=== PATIENT | female | born 1940 | race Caucasian/White ===

== ENCOUNTER 2017-11-27 07:55 | Day surgery (SDC) | payer MEDICARE ==
[2017-11-26 11:56] VITALS: BMI 27.3
[~2017-11-27 07:55] MED LIST: LACTATED RINGERS 1,000 ML IV SCH
[2017-11-27 08:21] VITALS: TEMP 96.3
[2017-11-27] MEDS ORDERED: LIDOCAINE 1% 20 ML VIAL (10MG/ML) FOR IV START INTRADERMA ONE (08:22)
[2017-11-27] MEDS ORDERED: PROPOFOL 10 MG/ML 20 ML VIAL IV ONE (09:05)
--- NOTE | 2017-11-27 09:27 | P.PCN ---
Date of Procedure: 11/27/17 Procedure(s) Performed: BRIEF HISTORY: Patient is a 77-year-old pleasant white female, scheduled for an elective colonoscopy as a part of screening for colorectal neoplasia. Her mother was diagnosed with colon cancer at age 50. PROCEDURE PERFORMED: Colonoscopy. PREOPERATIVE DIAGNOSIS: Screening for colon cancer/family history of colon cancer. IV sedation per Anesthesia. PROCEDURE: After informed consent was obtained, the patient, was brought into the endoscopy unit. IV sedation was administered by Anesthesia under continuous monitoring. Digital rectal examination was normal. Initially the Olympus CF- 160 flexible video colonoscope was then inserted in the rectum, gradually advanced into the cecum without any difficulty. Careful examination was performed as the scope was gradually being withdrawn. Ileocecal valve and the appendiceal orifice were visualized and appeared normal. Prep was excellent. Mucosa of the cecum, ascending colon, transverse colon, descending colon, sigmoid colon, and rectum appeared normal. Scattered sigmoid diverticulosis seen. Retroflexion was performed in the rectum and no lesions were seen. The patient tolerated the procedure well. IMPRESSION: Normal-appearing colon from rectum to cecum with no evidence of colon neoplasia. Scattered sigmoid diverticulosis RECOMMENDATIONS: Findings of this examination were discussed with the patient as well as a family. She was advised to have a repeat screening colonoscopy in 5 years because of the family history of colon cancer..
[2017-11-27 09:45] VITALS: BP 160/80; PULSE 66; RESP 20
== END 2017-11-27 10:10 | disposition home health service (06) ==
LOC: ORWHC2ENDO 07:55
PROVIDERS: ATTEND Internal Medicine Gastroenterology
DX: Z12.11 Encounter for screening for malignant neoplasm of colon (principal); K57.30 Diverticulosis of large intestine without perforation or abscess without bleeding; F17.200 Nicotine dependence, unspecified, uncomplicated; M19.90 Unspecified osteoarthritis, unspecified site; K21.9 Gastro-esophageal reflux disease without esophagitis; I10 Essential (primary) hypertension; E78.5 Hyperlipidemia, unspecified; Z79.1 Long term (current) use of non-steroidal anti-inflammatories (NSAID); Z79.899 Other long term (current) drug therapy; Z80.0 Family history of malignant neoplasm of digestive organs
CPT/HCPCS: J2704; G0105

== ENCOUNTER 2018-04-12 09:04 | Emergency (ER) | payer MEDICARE ==
[2018-04-12] MEDS ORDERED: SODIUM CHLORIDE 0.9% 1,000 ML IV STA (09:25)
[2018-04-12] MEDS ORDERED: ONDANSETRON 4 MG/2 ML VIAL IVP STA (09:25)
[2018-04-12] MEDS ORDERED: MORPHINE SULFATE 4 MG/ML SYRINGE IVP ONE (09:42)
--- NOTE | 2018-04-12 09:48 | ED ---
General Adult HPI - General Chief complaint: Nausea/Vomiting/Diarrhea Stated complaint: diarrhea, vomiting Time Seen by Provider: 04/12/18 09:25 Source: patient, RN notes reviewed Mode of arrival: ambulatory Limitations: no limitations - History of Present Illness Initial comments: 78-year-old female presents emergency Department with chief complaint of left- sided abdominal pain, nausea vomiting diarrhea. Patient states symptoms started last night. Patient states she flew home from for yesterday states that she felt constipated prior states that she did not want take a laxative prior to getting on the plane. Patient states that she got home she started pushing states that she had a large amount of stool output along with vomiting for 2 hours. Patient states it resolved states that she had a bloody bowel movement this morning. Patient had a colonoscopy approximately one month ago which was benign. - Related Data Home Medications Medication Instructions Recorded Confirmed ALPRAZolam [Xanax] 0.25 mg PO BID 07/09/13 04/12/18 Docusate Sodium [Stool Softener] 100 mg PO HS 07/09/13 04/12/18 FLUoxetine HCL 40 mg PO DAILY 07/09/13 04/12/18 Lisinopril [Zestril] 20 mg PO HS 07/09/13 04/12/18 Lisinopril-Hctz 20-25 mg 1 tab PO DAILY 07/09/13 04/12/18 [Zestoretic 20-25] Fluticasone Propionate [Flonase] 1 spray EA NOSTRIL DAILY 07/10/13 04/12/18 Celecoxib [CeleBREX] 200 mg PO DAILY 11/26/17 04/12/18 Multivitamins, Thera [Multivitamin 1 tab PO DAILY 11/26/17 04/12/18 (formulary)] Naproxen Sodium [Aleve] 220 mg PO DAILY PRN 11/26/17 04/12/18 Rosuvastatin Calcium [Crestor] 10 mg PO DAILY 11/26/17 04/12/18 buPROPion HCL [Wellbutrin XL] 300 mg PO DAILY 11/26/17 04/12/18 Polyethylene Glycol 3350 [Miralax] 17 gm PO DAILY 04/12/18 04/12/18 Allergies Allergy/AdvReac Type Severity Reaction Status Date / Time SEASONAL ALLERGIES AdvReac Cough Uncoded 10/03/18 08:16 Review of Systems ROS Statement: Those systems with pertinent positive or pertinent negative responses have been documented in the HPI. ROS Other: All systems not noted in ROS Statement are negative. Past Medical History Past Medical History: Eye Disorder, GERD/Reflux, Hyperlipidemia, Hypertension, Osteoarthritis (OA), Skin Disorder Additional Past Medical History / Comment(s): astigmatism, hx migraines, vagus nerve problems- "if constipated I pass out", eczema, History of Any Multi-Drug Resistant Organisms: None Reported Past Surgical History: Breast Surgery, Heart Catheterization, Joint Replacement Additional Past Surgical History / Comment(s): claudine foot mortons neuroma, claudine cataracts, left knee replacement x 3, rt knee replacement x 2, left breast biopsy, Past Anesthesia/Blood Transfusion Reactions: No Reported Reaction Past Psychological History: Anxiety, Depression Smoking Status: Current some day smoker Past Alcohol Use History: Rare Past Drug Use History: None Reported - Past Family History Mother Family Medical History: Cancer Additional Family Medical History / Comment(s): colon General Exam Limitations: no limitations General appearance: alert, in no apparent distress Head exam: Present: atraumatic, normocephalic, normal inspection Neck exam: Present: normal inspection. Absent: tenderness, meningismus, lymphadenopathy Respiratory exam: Present: normal lung sounds bilaterally. Absent: respiratory distress, wheezes, rales, rhonchi, stridor Cardiovascular Exam: Present: regular rate, normal rhythm, normal heart sounds. Absent: systolic murmur, diastolic murmur, rubs, gallop, clicks GI/Abdominal exam: Present: soft, tenderness (Mild left-sided), normal bowel sounds. Absent: distended, guarding, rebound, rigid Back exam: Absent: CVA tenderness (R), CVA tenderness (L) Skin exam: Present: warm, dry, intact, normal color. Absent: rash Course Vital Signs 04/12/18 04/12/18 09:08 10:15 Temperature 98.5 F Pulse Rate 84 76 Respiratory 16 18 Rate Blood Pressure 184/98 171/93 O2 Sat by Pulse 97 96 Oximetry Medical Decision Making - Medical Decision Making 78 show female presented for abdominal pain, diarrhea. Patient did have 1 bloody episode which is minimal. Patient has CT evidence of colitis. She is stable for discharge at this time she had a normal last be one month ago. This most likely the viral infection. Patient will be discharged return parameters were discussed. - Lab Data Result diagrams: 04/12/18 10:05 04/12/18 10:05 Lab Results 04/12/18 04/12/18 04/12/18 Range/Units 10:05 10:05 11:00 WBC 11.3 H (3.8-10.6) k/uL RBC 4.64 (3.80-5.40) m/uL Hgb 14.2 (11.4-16.0) gm/dL Hct 42.8 (34.0-46.0) % MCV 92.2 (80.0-100.0) fL MCH 30.7 (25.0-35.0) pg MCHC 33.3 (31.0-37.0) g/dL RDW 13.2 (11.5-15.5) % Plt Count 249 (150-450) k/uL Neutrophils % 75 % Lymphocytes % 17 % Monocytes % 4 % Eosinophils % 2 % Basophils % 0 % Neutrophils # 8.5 H (1.3-7.7) k/uL Lymphocytes # 1.9 (1.0-4.8) k/uL Monocytes # 0.5 (0-1.0) k/uL Eosinophils # 0.2 (0-0.7) k/uL Basophils # 0.0 (0-0.2) k/uL Sodium 142 (137-145) mmol/L Potassium 4.0 (3.5-5.1) mmol/L Chloride 110 H (98-107) mmol/L Carbon Dioxide 25 (22-30) mmol/L Anion Gap 7 mmol/L BUN 20 H (7-17) mg/dL Creatinine 0.88 (0.52-1.04) mg/dL Est GFR (CKD-EPI)AfAm 74 (>60 ml/min/1.73 sqM) Est GFR (CKD-EPI)NonAf 64 (>60 ml/min/1.73 sqM) Glucose 94 (74-99) mg/dL Calcium 9.6 (8.4-10.2) mg/dL Total Bilirubin 0.9 (0.2-1.3) mg/dL AST 25 (14-36) U/L ALT 31 (9-52) U/L Alkaline Phosphatase 90 (38-126) U/L Total Protein 6.5 (6.3-8.2) g/dL Albumin 4.0 (3.5-5.0) g/dL Amylase 42 (30-110) U/L Lipase 94 (23-300) U/L Urine Color Light Yellow Urine Appearance Clear (Clear) Urine pH 6.0 (5.0-8.0) Ur Specific [place] 1.003 (1.001-1.035) Urine Protein Negative (Negative) Urine Glucose (UA) Negative (Negative) Urine Ketones Negative (Negative) Urine Blood Negative (Negative) Urine Nitrite Negative (Negative) Urine Bilirubin Negative (Negative) Urine Urobilinogen <2.0 (<2.0) mg/dL Ur Leukocyte Esterase Small H (Negative) Urine RBC <1 (0-5) /hpf Urine WBC 2 (0-5) /hpf Ur Squamous Epith Cells 1 (0-4) /hpf Urine Mucus Rare H (None) /hpf Disposition Clinical Impression: Colitis Disposition: HOME SELF-CARE Condition: Stable Instructions (If sedation given, give patient instructions): Colitis (ED) Additional Instructions: Please return to the Emergency Department if symptoms worsen or any other concerns. Is patient prescribed a controlled substance at d/c from ED?: No Referrals: Dimas Garcia MD [Primary Care Provider] - 1-2 days Time of Disposition: 12:04
[2018-04-12 10:40] LABS: Basophils % (A) 0 %; Eosinophils # (A) 0.2 k/uL (0-0.7); Eosinophils % (A) 2 %; HCT 42.8 % (34.0-46.0); HGB 14.2 gm/dL (11.4-16.0); Lymphocytes # (A) 1.9 k/uL (1.0-4.8); Lymphocytes % (A) 17 %; MCH 30.7 pg (25.0-35.0); MCHC 33.3 g/dL (31.0-37.0); MCV 92.2 fL (80.0-100.0); Mean Platelet Volume 7.1; Monocytes # (A) 0.5 k/uL (0-1.0); Monocytes % (A) 4 %; Neutrophils # (A) 8.5 k/uL (1.3-7.7); Neutrophils % (A) 75 %; Platelet Count 249 k/uL (150-450); RBC 4.64 m/uL (3.80-5.40); RDW 13.2 % (11.5-15.5); WBC 11.3 k/uL (3.8-10.6)
[2018-04-12 10:53] LABS: Calcium 9.6 mg/dL (8.4-10.2); Total Bilirubin 0.9 mg/dL (0.2-1.3); Total Protein 6.5 g/dL (6.3-8.2)
--- NOTE | 2018-04-12 11:28 | CT ---
EXAMINATION TYPE: CT abdomen pelvis w con DATE OF EXAM: 04/12/2018 COMPARISON: None HISTORY: Diarrhea, vomiing CT DLP: 672.6 mGycm CONTRAST: CT scan of the abdomen and pelvis is performed without Oral Contrast and with IV Contrast, patient in jected with 100 mL of Isovue 300. FINDINGS: LUNG BASES-: No visible nodule. No infiltrate. LIVER/GB: No calcified gallstones. No space occupying hepatic lesion. Biliary tree is of normal ca liber. PANCREAS: No inflammation. No distinct mass. SPLEEN: No splenic enlargement. No lesion seen. ADRENALS: No nodule. No thickening. KIDNEYS/BLADDER: No hydronephrosis. No nephrolithiasis. Large left-sided renal cysts noted measurin g 10.4 cm in greatest dimension. Smaller renal cortical cyst upper pole left kidney. Urinary bladder grossly unremarkable. BOWEL: Normal appendix. There is moderate wall thickening involving the distal descending colon exten ding into the sigmoid colon compatible with nonspecific colitis. Colonic diverticulosis. GENITAL ORGANS: No gross abnormality. LYMPH NODES: No greater than 1cm abdominal or pelvic lymph nodes are appreciated. AORTA: No significant abnormality. OSSEOUS STRUCTURES: No significant abnormality is seen. OTHER: No significant additional abnormality is seen. IMPRESSION: 1. There is moderate wall thickening involving the distal descending colon extending into the sigmoid colon compatible with nonspecific colitis.
[2018-04-12 11:33] LABS: Appearance,Urine Clear (Clear); Bilirubin,Urine Negative (Negative); Blood,Urine Negative (Negative); Color,Urine Light Yellow; Glucose,Urine (UA) Negative (Negative); Ketones,Urine Negative (Negative); Leukocyte Esterase,Urine Small (Negative); Mucus,Urine Rare /hpf; Nitrite,Urine Negative (Negative); Protein,Urine Negative (Negative); RBC,Urine <1 /hpf (0-5); Specific Gravity,Urine 1.003 (1.001-1.035); Squamous Epithelial Cell,Urine 1 /hpf (0-4); Urobilinogen,Urine <2.0 mg/dL (<2.0); WBC,Urine 2 /hpf (0-5)
[2018-04-12] MEDS ORDERED: ACET/COD 300 MG/30 MG STARTER PACK 6 TAB BTL PO STA (12:35)
[2018-04-12 12:41] VITALS: BP 164/94; PULSE 68; RESP 16; TEMP 97.9
== END 2018-04-12 12:45 | disposition home or self-care (01) ==
LOC: EC 09:04
DX: K52.9 Noninfective gastroenteritis and colitis, unspecified (principal); E78.5 Hyperlipidemia, unspecified; I10 Essential (primary) hypertension; M19.90 Unspecified osteoarthritis, unspecified site; G43.909 Migraine, unspecified, not intractable, without status migrainosus; F41.9 Anxiety disorder, unspecified; F32.9 Major depressive disorder, single episode, unspecified; F17.200 Nicotine dependence, unspecified, uncomplicated; Z95.818 Presence of other cardiac implants and grafts; Z96.653 Presence of artificial knee joint, bilateral; Z79.51 Long term (current) use of inhaled steroids; Z79.1 Long term (current) use of non-steroidal anti-inflammatories (NSAID); Z79.899 Other long term (current) drug therapy; Z91.048 Other nonmedicinal substance allergy status
CPT/HCPCS: 36415; 80053; 82150; 83690; 85025; 81001; 74177; 99284; 96374; 96375; 96361; J2270; J2405; Q9967

== ENCOUNTER 2018-12-05 18:48 | Emergency (ER) | payer MEDICARE ==
[2018-12-05 19:00] VITALS: RESP 18
--- NOTE | 2018-12-05 20:53 | CT ---
EXAMINATION TYPE: CT brain wo con DATE OF EXAM: 12/05/2018 COMPARISON: None HISTORY: weakness, numbness to hands and feet. no injury. CT DLP: 1064.4 mGycm Automated exposure control for dose reduction was used. FINDINGS: There is mild hypodensity in the periventricular white matter. Ventricles have normal size. There is no mass effect nor midline shift. There is no sign of intracranial hemorrhage. Calvarium is intact. IMPRESSION: CHRONIC SMALL VESSEL ISCHEMIA. NO EVIDENCE OF CORTICAL INFARCT. NO INTRACRANIAL HEMORRHAGE.
--- NOTE | 2018-12-05 20:57 | CT ---
EXAMINATION TYPE: CT lumbar spine wo con DATE OF EXAM: 12/05/2018 8:48 PM COMPARISON: None HISTORY: weakness, numbness to hands and feet. no injury. CT DLP: 998.4 mGycm Automated exposure control for dose reduction was used. Unenhanced CT of the lumbar spine was performed. Bone and soft tissue window settings are submitted as well as coronal and sagittal reconstructions. Lumbar vertebra have mild dextroscoliosis deformity. There is degenerative disc space narrowing throu ghout the lumbar spine with multilevel vacuum disc. There is no compression fracture. Posterior eleme nts are intact. There is no lumbar paraspinal mass. I see no focal bone destruction. There is mild hy pertrophic facet arthropathy. There is L5-S1 spinal stenosis due to facet arthropathy. There is also mild spinal stenosis at L3-4 L4-5 due to facet arthropathy. The sacroiliac joints appear intact. IMPRESSION: Multilevel spondylosis and mild dextroscoliosis. No fracture. Multilevel lumbar spinal stenosis.
[2018-12-05 20:58] LABS: ALT 27 U/L (9-52); AST 33 U/L (14-36); African American GFR (CKD) 68 (>60 ml/min/1.73 sqM); Albumin 4.6 g/dL (3.5-5.0); Alkaline Phosphatase 102 U/L (38-126); Anion Gap 11 mmol/L; Basophils # (A) 0.1 k/uL (0-0.2); Basophils % (A) 1 %; Blood Urea Nitrogen 23 mg/dL (7-17); C Reactive Protein <5.0 mg/L (<10.0); Calcium 10.2 mg/dL (8.4-10.2); Carbon Dioxide 25 mmol/L (22-30); Chloride 105 mmol/L (98-107); Creatine Kinase 135 U/L (30-135); Eosinophils # (A) 0.2 k/uL (0-0.7); Eosinophils % (A) 2 %; Glucose 89 mg/dL (74-99); HCT 41.9 % (34.0-46.0); HGB 14.1 gm/dL (11.4-16.0); Lymphocytes # (A) 3.1 k/uL (1.0-4.8); Lymphocytes % (A) 28 %; MCH 31.4 pg (25.0-35.0); MCHC 33.6 g/dL (31.0-37.0); MCV 93.4 fL (80.0-100.0); Magnesium 2.3 mg/dL (1.6-2.3); Mean Platelet Volume 6.7; Monocytes # (A) 0.6 k/uL (0-1.0); Monocytes % (A) 5 %; Neutrophils % (A) 62 %; Platelet Count 253 k/uL (150-450); Potassium 4.1 mmol/L (3.5-5.1); RBC 4.49 m/uL (3.80-5.40); RDW 12.9 % (11.5-15.5); Sodium 141 mmol/L (137-145); Total Bilirubin 0.6 mg/dL (0.2-1.3); Total Protein 7.5 g/dL (6.3-8.2); WBC 11.2 k/uL (3.8-10.6)
[2018-12-05 21:02] LABS: INR 0.9 (<1.2); Partial Thromboplastin Time 24.3 sec (22.0-30.0); Prothrombin Time 9.7 sec (9.0-12.0)
--- NOTE | 2018-12-05 21:35 | US ---
EXAMINATION TYPE: US venous doppler duplex LE RT DATE OF EXAM: 12/05/2018 9:24 PM COMPARISON: NONE CLINICAL HISTORY: swelling. Numbness in right leg x 2 days. Swelling per order. No hx of DVT. Not on blood thinners. SIDE PERFORMED: Right TECHNIQUE: The lower extremity deep venous system is examined utilizing real time linear array sonog aleyda with graded compression, doppler sonography and color-flow sonography. VESSELS IMAGED: External Iliac Vein (EIV) Common Femoral Vein Deep Femoral Vein Greater Saphenous Vein * Femoral Vein Popliteal Vein Small Saphenous Vein * Proximal Calf Veins (* superficial vessels) Right Leg: No evidence of DVT in veins imaged from prox calf veins to EIV. Patient cannot tolerate c ompression of distal femoral vein. IMPRESSION: No evidence of deep venous thrombosis in the right leg.
--- NOTE | 2018-12-05 21:38 | ED ---
Neuro HPI - General Chief Complaint: Neuro Symptoms/Deficit Stated Complaint: Hand,foot and leg numbness Time Seen by Provider: 12/05/18 19:00 Source: patient Mode of arrival: ambulatory - History of Present Illness Is the patient presenting with stroke symptoms?: No Initial Comments: The patient is a 78-year-old female with past medical history of hypertension and anxiety who presents to the emergency room with reported numbness and tingling in her bilateral hands and feet. Her symptoms started on Saturday. She reports that she began having numbness and tingling in her right toes. This ascended up to her right knee and now is worsened to include her whole leg. She feels as if it is swollen and her "pant leg is too tight". He denies a history of DVTs or PE. No recent trauma. The sensory deficit worsened and she now has tingling from her left knee down to her foot, as well as bilateral hands and upper lip. She denies any weakness in her extremities. Denies cervical or thoracic back pain. She admits to a history of chronic lumbar back pain is not worsened. She denies any saddle anesthesia. No bowel or bladder incontinence. No recent head trauma. She is not on any blood thinners. Denies fevers or chills. No ataxia. Patient reports difficulty ambulating because she feels as if she is walking on a water balloon. No history of similar in the past. She called her primary care physician who referred her to the emergency department. He did recommend neurologic evaluation. He voiced concern for Guillain-Matos and possible transverse myelitis. There are no other alleviating, precipitating or modifying factors - Related Data Home Medications: Home Medications Medication Instructions Recorded Confirmed ALPRAZolam [Xanax] 0.25 mg PO BID 07/09/13 12/05/18 Docusate Sodium [Stool Softener] 100 mg PO HS 07/09/13 12/05/18 FLUoxetine HCL 40 mg PO DAILY 07/09/13 12/05/18 Lisinopril [Zestril] 20 mg PO HS 07/09/13 12/05/18 Lisinopril-Hctz 20-25 mg 1 tab PO DAILY 07/09/13 12/05/18 [Zestoretic 20-25] Fluticasone Propionate [Flonase] 1 spray EA NOSTRIL DAILY 07/10/13 12/05/18 Celecoxib [CeleBREX] 200 mg PO DAILY 11/26/17 12/05/18 Multivitamins, Thera [Multivitamin 1 tab PO DAILY 11/26/17 12/05/18 (formulary)] Rosuvastatin Calcium [Crestor] 10 mg PO DAILY 11/26/17 12/05/18 buPROPion HCL [Wellbutrin XL] 300 mg PO DAILY 11/26/17 12/05/18 Polyethylene Glycol 3350 [Miralax] 17 gm PO DAILY 04/12/18 12/05/18 Allergies/Adverse Reactions: Allergies Allergy/AdvReac Type Severity Reaction Status Date / Time SEASONAL ALLERGIES AdvReac Cough Uncoded 12/05/18 20:09 Review of Systems ROS Statement: Those systems with pertinent positive or pertinent negative responses have been documented in the HPI. ROS Other: All systems not noted in ROS Statement are negative. General Exam General appearance: alert, in no apparent distress Head exam: Present: atraumatic, normocephalic, normal inspection Eye exam: Present: normal appearance, PERRL, EOMI. Absent: scleral icterus, conjunctival injection, periorbital swelling ENT exam: Present: normal exam, mucous membranes moist Neck exam: Present: normal inspection. Absent: tenderness, meningismus, lymphadenopathy Respiratory exam: Present: normal lung sounds bilaterally. Absent: respiratory distress, wheezes, rales, rhonchi, stridor Cardiovascular Exam: Present: regular rate, normal rhythm, normal heart sounds. Absent: systolic murmur, diastolic murmur, rubs, gallop, clicks GI/Abdominal exam: Present: soft, normal bowel sounds. Absent: distended, tenderness, guarding, rebound, rigid Extremities exam: Present: normal inspection, full ROM, normal capillary refill. Absent: tenderness, pedal edema, joint swelling, calf tenderness Back exam: Present: normal inspection Neurological exam: Present: alert, oriented X3, CN II-XII intact, reflexes normal, other (5/5 strength in all extremities. Intact 2 point, soft touch and proprioception in all extremities ) Psychiatric exam: Present: normal affect, normal mood Skin exam: Present: warm, dry, intact, normal color. Absent: rash Stroke MDM - Lab Data Result diagrams: 12/05/18 19:56 12/05/18 19:56 Lab Results 12/05/18 12/05/18 12/05/18 Range/Units 19:56 19:56 19:56 WBC 11.2 H (3.8-10.6) k/uL RBC 4.49 (3.80-5.40) m/uL Hgb 14.1 (11.4-16.0) gm/dL Hct 41.9 (34.0-46.0) % MCV 93.4 (80.0-100.0) fL MCH 31.4 (25.0-35.0) pg MCHC 33.6 (31.0-37.0) g/dL RDW 12.9 (11.5-15.5) % Plt Count 253 (150-450) k/uL Neutrophils % 62 % Lymphocytes % 28 % Monocytes % 5 % Eosinophils % 2 % Basophils % 1 % Neutrophils # 7.0 (1.3-7.7) k/uL Lymphocytes # 3.1 (1.0-4.8) k/uL Monocytes # 0.6 (0-1.0) k/uL Eosinophils # 0.2 (0-0.7) k/uL Basophils # 0.1 (0-0.2) k/uL ESR 8 (0-20) mm/hr PT 9.7 (9.0-12.0) sec INR 0.9 (<1.2) APTT 24.3 (22.0-30.0) sec Sodium 141 (137-145) mmol/L Potassium 4.1 (3.5-5.1) mmol/L Chloride 105 (98-107) mmol/L Carbon Dioxide 25 (22-30) mmol/L Anion Gap 11 mmol/L BUN 23 H (7-17) mg/dL Creatinine 0.95 (0.52-1.04) mg/dL Est GFR (CKD-EPI)AfAm 68 (>60 ml/min/1.73 sqM) Est GFR (CKD-EPI)NonAf 59 (>60 ml/min/1.73 sqM) Glucose 89 (74-99) mg/dL Plasma Lactic Acid Uriel (0.7-2.0) mmol/L Calcium 10.2 (8.4-10.2) mg/dL Magnesium 2.3 (1.6-2.3) mg/dL Total Bilirubin 0.6 (0.2-1.3) mg/dL AST 33 (14-36) U/L ALT 27 (9-52) U/L Alkaline Phosphatase 102 (38-126) U/L Creatine Kinase 135 (30-135) U/L C-Reactive Protein <5.0 (<10.0) mg/L Total Protein 7.5 (6.3-8.2) g/dL Albumin 4.6 (3.5-5.0) g/dL TSH 2.130 (0.465-4.680) mIU/L Urine Color Urine Appearance (Clear) Urine pH (5.0-8.0) Ur Specific [place] (1.001-1.035) Urine Protein (Negative) Urine Glucose (UA) (Negative) Urine Ketones (Negative) Urine Blood (Negative) Urine Nitrite (Negative) Urine Bilirubin (Negative) Urine Urobilinogen (<2.0) mg/dL Ur Leukocyte Esterase (Negative) 12/05/18 12/05/18 Range/Units 20:20 22:08 WBC (3.8-10.6) k/uL RBC (3.80-5.40) m/uL Hgb (11.4-16.0) gm/dL Hct (34.0-46.0) % MCV (80.0-100.0) fL MCH (25.0-35.0) pg MCHC (31.0-37.0) g/dL RDW (11.5-15.5) % Plt Count (150-450) k/uL Neutrophils % % Lymphocytes % % Monocytes % % Eosinophils % % Basophils % % Neutrophils # (1.3-7.7) k/uL Lymphocytes # (1.0-4.8) k/uL Monocytes # (0-1.0) k/uL Eosinophils # (0-0.7) k/uL Basophils # (0-0.2) k/uL ESR (0-20) mm/hr PT (9.0-12.0) sec INR (<1.2) APTT (22.0-30.0) sec Sodium (137-145) mmol/L Potassium (3.5-5.1) mmol/L Chloride (98-107) mmol/L Carbon Dioxide (22-30) mmol/L Anion Gap mmol/L BUN (7-17) mg/dL Creatinine (0.52-1.04) mg/dL Est GFR (CKD-EPI)AfAm (>60 ml/min/1.73 sqM) Est GFR (CKD-EPI)NonAf (>60 ml/min/1.73 sqM) Glucose (74-99) mg/dL Plasma Lactic Acid Uriel 1.2 (0.7-2.0) mmol/L Calcium (8.4-10.2) mg/dL Magnesium (1.6-2.3) mg/dL Total Bilirubin (0.2-1.3) mg/dL AST (14-36) U/L ALT (9-52) U/L Alkaline Phosphatase (38-126) U/L Creatine Kinase (30-135) U/L C-Reactive Protein (<10.0) mg/L Total Protein (6.3-8.2) g/dL Albumin (3.5-5.0) g/dL TSH (0.465-4.680) mIU/L Urine Color Light Yellow Urine Appearance Clear (Clear) Urine pH 7.0 (5.0-8.0) Ur Specific [place] 1.012 (1.001-1.035) Urine Protein Negative (Negative) Urine Glucose (UA) Negative (Negative) Urine Ketones Negative (Negative) Urine Blood Negative (Negative) Urine Nitrite Negative (Negative) Urine Bilirubin Negative (Negative) Urine Urobilinogen <2.0 (<2.0) mg/dL Ur Leukocyte Esterase Negative (Negative) - Medical Decision Making Upon arrival the patient was placed into room 22. She was hooked up to continuous pulse ox and cardiac monitoring. A 12-lead EKG was performed on the patient. Peripheral IV was established. I did conduct laboratory studies. Madi brown was sent for a CT of her brain. I also did a CT the patient's lumbar spine. She is reporting swelling to her right lower extremity therefore I did perform a Doppler ultrasound. Lab studies demonstrate a WBC of 11.2. Coags are normal. CMP and lactic acid is normal. Magnesium is 2.3 and potassium is 4.1. UA is negative. Venous ultrasound of the right lower trauma demonstrates no evidence of DVT from the proximal calf to the external iliac vein. She could not tolerate compression of the distal femoral vein. Lumbar spine CT demonstrated multilevel spondylolysis and mild dextroscoliosis with multilevel lumbar spinal stenosis. CT of the patient's brain demonstrates chronic small vessel ischemia with no evidence of cortical infarct. I discussed the results with the patient. I did recommend lumbar puncture however the patient refused. I did recommend full neurologic evaluation for which the patient did agree to. As neurology is not available at our facility I did recommend transfer. Patient does agree to transfer [facility]. I called and discussed the case with Dr. Lopez who accepted transfer of the patient. Patient was then transferred in stable condition 12/05/18 21:38 EKG demonstrates a sinus rhythm with a PVC. Ventricular rate of 70. ME interval 178. QRS 126. QTC 477. There is a right bundle branch block. No acute ST segment elevations or depressions concerning for ischemic changes Past Medical History Past Medical History: Eye Disorder, GERD/Reflux, Hyperlipidemia, Hypertension, Osteoarthritis (OA), Skin Disorder Additional Past Medical History / Comment(s): astigmatism, hx migraines, vagus nerve problems- "if constipated I pass out", eczema, History of Any Multi-Drug Resistant Organisms: None Reported Past Surgical History: Breast Surgery, Heart Catheterization, Joint Replacement Additional Past Surgical History / Comment(s): claudine foot mortons neuroma, claudine cataracts, left knee replacement x 3, rt knee replacement x 2, left breast biopsy, Past Anesthesia/Blood Transfusion Reactions: No Reported Reaction Past Psychological History: Anxiety, Depression Smoking Status: Current some day smoker Past Alcohol Use History: Rare Past Drug Use History: None Reported - Past Family History Mother Family Medical History: Cancer Additional Family Medical History / Comment(s): colon Course Vital Signs 12/05/18 12/05/18 18:56 23:36 Temperature 97.5 F L 98.2 F Pulse Rate 83 72 Respiratory 18 18 Rate Blood Pressure 106/66 184/104 O2 Sat by Pulse 97 96 Oximetry Disposition Clinical Impression: Neuropathy Disposition: OTHER INSTITUTION NOT DEFINED Condition: Stable Is patient prescribed a controlled substance at d/c from ED?: No Referrals: Dimas Garcia MD [Primary Care Provider] - 1-2 days Time of Disposition: 23:58 - Out of Hospital Transfer - Req. Specs Out of Hospital Transfer - Requested Specifics: Other Emergency Center ([facility])
[2018-12-05 21:51] LABS: Erythrocyte Sedimentation Rate 8 mm/hr (0-20)
[2018-12-05 22:22] LABS: Appearance,Urine Clear (Clear); Bilirubin,Urine Negative (Negative); Blood,Urine Negative (Negative); Color,Urine Light Yellow; Glucose,Urine (UA) Negative (Negative); Ketones,Urine Negative (Negative); Leukocyte Esterase,Urine Negative (Negative); Nitrite,Urine Negative (Negative); Protein,Urine Negative (Negative); Specific Gravity,Urine 1.012 (1.001-1.035); Urobilinogen,Urine <2.0 mg/dL (<2.0)
[2018-12-05 23:37] VITALS: BP 184/104; PULSE 72; TEMP 98.2
[2018-12-06] MEDS ORDERED: LISINOPRIL 20 MG TAB PO STA (00:05)
== END 2018-12-06 00:15 | disposition other institution (70) ==
LOC: EC 18:48
DX: G62.9 Polyneuropathy, unspecified (principal); E78.5 Hyperlipidemia, unspecified; I10 Essential (primary) hypertension; K21.9 Gastro-esophageal reflux disease without esophagitis; M19.90 Unspecified osteoarthritis, unspecified site; F41.9 Anxiety disorder, unspecified; F32.9 Major depressive disorder, single episode, unspecified; F17.200 Nicotine dependence, unspecified, uncomplicated; Z79.899 Other long term (current) drug therapy; Z91.09 Other allergy status, other than to drugs and biological substances; Z96.653 Presence of artificial knee joint, bilateral; M48.061 Spinal stenosis, lumbar region without neurogenic claudication; M43.06 Spondylolysis, lumbar region
CPT/HCPCS: 36415; 70450; 72131; 80053; 81003; 82550; 83605; 83735; 84443; 85025; 85610; 85652; 85730; 86140; 93005; 99285

== ENCOUNTER → 2020-09-06 | Outpatient (CLI) | payer MEDICARE | LOC: CPPFTMAIN 13:19 | PROVIDERS: ATTEND Internal Medicine | DX: R06.02 Shortness of breath (principal); F17.200 Nicotine dependence, unspecified, uncomplicated | CPT/HCPCS: 94060; 94726; 94729 ==

== ENCOUNTER → 2020-11-22 | Outpatient (CLI) | payer MEDICARE ==
--- NOTE | 2020-11-23 09:05 | XR ---
EXAMINATION TYPE: XR chest 2V DATE OF EXAM: 11/22/2020 COMPARISON: Chest x-ray 07/17/2013 HISTORY: R06.02, difficulty breathing TECHNIQUE: Frontal and lateral views of the chest are obtained. FINDINGS: There is no pleural effusion or pneumothorax seen. There is some prominence of interstitiu m. Some patchy density present in the right midlung. Prominent lung volumes with flattening the hemid iaphragms could be indicative of underlying COPD. The aorta is dense and ectatic, tortuous. Bone mine ralization is reduced. The cardiac silhouette size is stable. Overlying loop recorder is noted on th e left lower chest. The osseous structures are intact, there is multilevel vertebral spondylosis. IMPRESSION: Difficult to exclude early pneumonia, there may be interstitial changes within the lungs . Aortic ectasia. There may be some underlying interstitial lung disease.
== END | disposition home or self-care (01) ==
LOC: RADXRMAIN 16:52
PROVIDERS: ATTEND Internal Medicine
DX: J98.4 Other disorders of lung (principal); I77.810 Thoracic aortic ectasia
CPT/HCPCS: 71046

== ENCOUNTER → 2021-02-23 | Outpatient (CLI) | payer MEDICARE ==
--- NOTE | 2021-02-23 12:03 | XR ---
EXAMINATION TYPE: XR shoulder complete RT DATE OF EXAM: 02/23/2021 CLINICAL HISTORY: pain TECHNIQUE: Three views of the right shoulder are obtained. COMPARISON: None FINDINGS: There is no acute fracture/dislocation evident. The acromioclavicular and glenohumeral evgeny int spaces appear within normal limits. The visualized ribs are intact and unremarkable. IMPRESSION: 1. There is no acute fracture or dislocation. ICD 10 NO FRACTURE, INITIAL EVALUATION
== END | disposition home or self-care (01) ==
LOC: RADXRMAIN 11:42
PROVIDERS: ATTEND Internal Medicine
DX: M25.511 Pain in right shoulder (principal)

== ENCOUNTER → 2021-09-18 | Outpatient (CLI) | payer MEDICARE ==
--- NOTE | 2021-09-18 18:47 | US ---
EXAMINATION TYPE: US kidneys/renal and bladder DATE OF EXAM: 09/18/2021 COMPARISON: NONE CLINICAL HISTORY: N28.9 KIDNEY LESION. renal cyst EXAM MEASUREMENTS: Right Kidney: 9.1 x 4.1 x 3.9 cm Left Kidney: 10.1 x 5.8 x 4.5 cm Right Kidney: no evidence of hydronephrosis or nephrolithiasis. Left Kidney: cystic areas noted, largest = 12.4 x 11.1 x 13.0cm . No hydronephrosis or nephrolithia sis Bladder: wnl Bilateral Jets seen: yes IMPRESSION: Multiple hypoechoic lesions involving the kidneys the largest measuring 12.4 x 13 cm most likely in t he basis of renal simple cysts.
== END | disposition home or self-care (01) ==
LOC: RADUSWWP 15:41
PROVIDERS: ATTEND Internal Medicine
DX: N28.9 Disorder of kidney and ureter, unspecified (principal)
CPT/HCPCS: 76770

== ENCOUNTER 2021-09-29 13:29 | Emergency (ER) | payer MEDICARE ==
[2021-09-29 13:41] VITALS: TEMP 98
[2021-09-29] MEDS ORDERED: NITROGLYCERIN OINT 1 INCH/GM PACKET TOPICAL STA (13:54)
[2021-09-29] MEDS ORDERED: ENALAPRILAT 1.25 MG/ML 1 ML VIAL IVP STA (13:55)
--- NOTE | 2021-09-29 13:59 | ED ---
General Adult HPI - General Source: patient, RN notes reviewed, old records reviewed Mode of arrival: EMS Limitations: no limitations <Viral Dubois - Last Filed: 09/29/21 14:50> <Stanislav Ramos - Last Filed: 09/29/21 16:56> - General Chief complaint: Chest Pain Stated complaint: chest pain Time Seen by Provider: 09/29/21 13:57 - History of Present Illness Initial comments: This is a 81-year-old female who presents emergency Department complaining of anterior chest pain. Patient states the pain radiated to her back and was quite excruciating for the first 15 or so minutes. Patient states now chest pressure sensation in her chest and back. Patient states that she was mildly short of breath but it was difficult to notice because she was in so much pain. Patient denies any fever chills or cough. Patient denies any previous history of heart attacks. Patient states she has high blood pressure did not take her blood pressure medicines this morning. Patient denies abdominal pain patient denies nausea vomiting diarrhea per patient denies any diaphoretic episodes. Patient denies any calf tenderness or leg swelling (Viral Dubois) - Related Data Home Medications Medication Instructions Recorded Confirmed ALPRAZolam [Xanax] 0.25 mg PO BID 07/09/13 12/05/18 Docusate Sodium [Stool Softener] 100 mg PO HS 07/09/13 12/05/18 FLUoxetine HCL 40 mg PO DAILY 07/09/13 12/05/18 Lisinopril-Hctz 20-25 mg 1 tab PO DAILY 07/09/13 12/05/18 [Zestoretic 20-25] lisinopriL [Zestril] 20 mg PO HS 07/09/13 12/05/18 Fluticasone Propionate [Flonase] 1 spray EA NOSTRIL DAILY 07/10/13 12/05/18 Celecoxib [CeleBREX] 200 mg PO DAILY 11/26/17 12/05/18 Multivitamins, Thera [Multivitamin 1 tab PO DAILY 11/26/17 12/05/18 (formulary)] Rosuvastatin Calcium [Crestor] 10 mg PO DAILY 11/26/17 12/05/18 buPROPion HCL [Wellbutrin XL] 300 mg PO DAILY 11/26/17 12/05/18 polyethylene glycoL 3350 [Miralax] 17 gm PO DAILY 04/12/18 12/05/18 Allergies Allergy/AdvReac Type Severity Reaction Status Date / Time SEASONAL ALLERGIES AdvReac Cough Uncoded 12/05/18 20:09 Review of Systems ROS Other: All systems not noted in ROS Statement are negative. <Viral Dubois - Last Filed: 09/29/21 14:50> ROS Other: All systems not noted in ROS Statement are negative. <Stanislav Ramos - Last Filed: 09/29/21 16:56> ROS Statement: Those systems with pertinent positive or pertinent negative responses have been documented in the HPI. Past Medical History Past Medical History: Eye Disorder, GERD/Reflux, Hyperlipidemia, Hypertension, Osteoarthritis (OA), Skin Disorder Additional Past Medical History / Comment(s): astigmatism, hx migraines, vagus nerve problems- "if constipated I pass out", eczema, History of Any Multi-Drug Resistant Organisms: None Reported Past Surgical History: Breast Surgery, Heart Catheterization, Joint Replacement Additional Past Surgical History / Comment(s): claudine foot mortons neuroma, claudine cataracts, left knee replacement x 3, rt knee replacement x 2, left breast biopsy, Past Anesthesia/Blood Transfusion Reactions: No Reported Reaction Past Psychological History: Anxiety, Depression Smoking Status: Current every day smoker Past Alcohol Use History: Rare Past Drug Use History: None Reported - Past Family History Mother Family Medical History: Cancer Additional Family Medical History / Comment(s): colon <Viral Dubois - Last Filed: 09/29/21 14:50> General Exam Limitations: no limitations <Viral Dubois - Last Filed: 09/29/21 14:50> - General Exam Comments Initial Comments: GENERAL: Patient is well-developed and well-nourished. Patient is nontoxic and well- hydrated and is in mild distress. ENT: Neck is soft and supple. No significant lymphadenopathy is noted. Oropharynx is clear. Moist mucous membranes. Neck has full range of motion without eliciting any pain. EYES: The sclera were anicteric and conjunctiva were pink and moist. Extraocular movements were intact and pupils were equal round and reactive to light. Eyelids were unremarkable. PULMONARY: Unlabored respirations. Good breath sounds bilaterally. No audible rales rhonchi or wheezing was noted. CARDIOVASCULAR: There is a regular rate and rhythm without any murmurs gallops or rubs. ABDOMEN: Soft and nontender with normal bowel sounds. SKIN: Skin is clear with no lesions or rashes and otherwise unremarkable. NEUROLOGIC: Patient is alert and oriented x3. Cranial nerves II through XII are grossly intact. Motor and sensory are also intact. Normal speech, volume and content. Symmetrical smile. MUSCULOSKELETAL: Normal extremities with adequate strength and full range of motion. No lower extremity swelling or edema. No calf tenderness. LYMPHATICS: No significant lymphadenopathy is noted PSYCHIATRIC: Normal psychiatric evaluation. (Viral Dubois) Course Vital Signs 09/29/21 09/29/21 09/29/21 13:35 13:41 14:33 Temperature 98 F Pulse Rate 64 62 78 Pulse Rate [ Campaign Consultant ] Respiratory 22 20 22 Rate Blood Pressure 153/98 161/101 135/88 O2 Sat by Pulse 95 97 98 Oximetry 09/29/21 09/29/21 09/29/21 14:46 15:00 16:05 Temperature Pulse Rate 89 65 Pulse Rate [ 80 Campaign Consultant ] Respiratory 22 24 Rate Blood Pressure 168/101 189/99 O2 Sat by Pulse 98 98 Oximetry 09/29/21 09/29/21 09/29/21 16:14 16:19 16:34 Temperature Pulse Rate 64 68 64 Pulse Rate [ Campaign Consultant ] Respiratory 18 16 20 Rate Blood Pressure 142/97 142/97 136/84 O2 Sat by Pulse 98 98 98 Oximetry 09/29/21 16:38 Temperature Pulse Rate 65 Pulse Rate [ Campaign Consultant ] Respiratory 16 Rate Blood Pressure 120/83 O2 Sat by Pulse 98 Oximetry Medical Decision Making - Lab Data Result diagrams: 09/29/21 14:00 09/29/21 14:00 <Viral Dubois - Last Filed: 09/29/21 14:50> - Lab Data Result diagrams: 09/29/21 14:00 09/29/21 14:00 <Stanislav Ramos - Last Filed: 09/29/21 16:56> - Medical Decision Making EKG shows sinus rhythm at 60 bpm MA interval 284 QRS is 133 QT interval 447 QTC is 449. Patient's EKG shows a right bundle branch block no ST segment elevation. Dr. Ramos we taking over the care of this patient at 3 PM (Viral Dubois) Patient was signed out to me by previous shift physician, Dr. Dubois at 300pm. Instruction at sign out was to follow-up with pending CT imaging of the chest. Briefly, patient is 81-year-old female presents emergency Department with thoracic symptoms concerning for aortic dissection. She did have blood work and x-ray. She had elevated d-dimer of 3.69. Prior shift physician ordered a CT thoracic aorta which showed aortic dissection. I did speak with radiologist who felt that patient has evidence of a type A dissection. Patient was started on esmolol issues reevaluated at the bedside with significant pain and nausea. Pressure physician had ordered patient to get hydralazine, nitroglycerin and Vasotec. Patient's blood pressure still significantly elevated. Patient started on esmolol and nicardipine with a goal to titrate systolic blood pressure to 100-120 mg mercury and heart rate of 60-70. Formal radiology read reviewed showing aortic dissection extending from around subclavian artery to the right external iliac artery. There does appear to be occlusion of the right renal artery with abrupt cutoff of the renal artery near its origin. No enhancement of the right kidney. Spoke with [facility]. I was put into contact with aortic surgeon, Dr. Aleksandra Wall. She requested that I send her a movie via cell phone text to her phone number at [phone]. Patient was sent a video scrolling through the axial images of the CT thoracic aorta. Dr. Wall states that she will review the image and decide whether patient is an appropriate transfer to their facility. Patient reevaluated at bedside at 4:32 PM feeling improved after IV analgesics and several minutes of vasoactive medications. Her heart rate has been at the target range between 60 and 70 however her blood pressure still require some titration. As of 4:32 PM her blood pressure is 137/83. I was notified via text messaging that Dr. Wall speaker will speak with transfer center to see if they have available beds. She states that she will be able accept if there are available beds. Dr. Wall reviewed the images and felt like patient's imaging study suggested Type B dissection. I did receive a call back from the [facility] transfer line at approximately 4:45 PM. I was put in contact with Dr. Courtney who is the housekeeper head reviewing all the transfers into their facility. Spoke in detail with Dr. Courtney who is agreeable for patient to be transferred to [facility]. He did state that he will speak with emergency room for ER to ER transfer. Patient again reevaluated bedside at 5:00 and found to be stable medical condition. She rates her pain as a 3 out of 10. She is comfortable and well-appearing. Her vital signs at 553pm shows heart rate of 62 with a blood pressure 119/70. She does appear to be at target systolic blood pressure and heart rate. Patient is agreeable for transfer. (Stanislav Ramos) - Lab Data Lab Results 09/29/21 09/29/21 09/29/21 Range/Units 14:00 14:00 14:00 WBC 9.6 (3.8-10.6) k/uL RBC 4.26 (3.80-5.40) m/uL Hgb 12.9 (11.4-16.0) gm/dL Hct 40.0 (34.0-46.0) % MCV 94.1 (80.0-100.0) fL MCH 30.4 (25.0-35.0) pg MCHC 32.3 (31.0-37.0) g/dL RDW 14.1 (11.5-15.5) % Plt Count 199 (150-450) k/uL MPV 7.7 Neutrophils % 53 % Lymphocytes % 36 % Monocytes % 6 % Eosinophils % 3 % Basophils % 1 % Neutrophils # 5.0 (1.3-7.7) k/uL Lymphocytes # 3.5 (1.0-4.8) k/uL Monocytes # 0.6 (0-1.0) k/uL Eosinophils # 0.3 (0-0.7) k/uL Basophils # 0.1 (0-0.2) k/uL PT 10.2 (9.0-12.0) sec INR 0.9 (<1.2) APTT 21.0 L (22.0-30.0) sec D-Dimer 3.69 H (<0.60) mg/L FEU Sodium 141 (137-145) mmol/L Potassium 4.1 (3.5-5.1) mmol/L Chloride 111 H (98-107) mmol/L Carbon Dioxide 24 (22-30) mmol/L Anion Gap 6 mmol/L BUN 19 H (7-17) mg/dL Creatinine 0.95 (0.52-1.04) mg/dL Est GFR (CKD-EPI)AfAm 66 (>60 ml/min/1.73 sqM) Est GFR (CKD-EPI)NonAf 58 (>60 ml/min/1.73 sqM) Glucose 86 (74-99) mg/dL Calcium 9.5 (8.4-10.2) mg/dL Magnesium 2.0 (1.6-2.3) mg/dL Total Bilirubin 1.1 (0.2-1.3) mg/dL AST 32 (14-36) U/L ALT 18 (4-34) U/L Alkaline Phosphatase 65 (38-126) U/L Troponin I (0.000-0.034) ng/mL Total Protein 6.4 (6.3-8.2) g/dL Albumin 4.0 (3.5-5.0) g/dL 09/29/21 Range/Units 14:00 WBC (3.8-10.6) k/uL RBC (3.80-5.40) m/uL Hgb (11.4-16.0) gm/dL Hct (34.0-46.0) % MCV (80.0-100.0) fL MCH (25.0-35.0) pg MCHC (31.0-37.0) g/dL RDW (11.5-15.5) % Plt Count (150-450) k/uL MPV Neutrophils % % Lymphocytes % % Monocytes % % Eosinophils % % Basophils % % Neutrophils # (1.3-7.7) k/uL Lymphocytes # (1.0-4.8) k/uL Monocytes # (0-1.0) k/uL Eosinophils # (0-0.7) k/uL Basophils # (0-0.2) k/uL PT (9.0-12.0) sec INR (<1.2) APTT (22.0-30.0) sec D-Dimer (<0.60) mg/L FEU Sodium (137-145) mmol/L Potassium (3.5-5.1) mmol/L Chloride (98-107) mmol/L Carbon Dioxide (22-30) mmol/L Anion Gap mmol/L BUN (7-17) mg/dL Creatinine (0.52-1.04) mg/dL Est GFR (CKD-EPI)AfAm (>60 ml/min/1.73 sqM) Est GFR (CKD-EPI)NonAf (>60 ml/min/1.73 sqM) Glucose (74-99) mg/dL Calcium (8.4-10.2) mg/dL Magnesium (1.6-2.3) mg/dL Total Bilirubin (0.2-1.3) mg/dL AST (14-36) U/L ALT (4-34) U/L Alkaline Phosphatase (38-126) U/L Troponin I 0.030 (0.000-0.034) ng/mL Total Protein (6.3-8.2) g/dL Albumin (3.5-5.0) g/dL Critical Care Time Critical Care Time: Yes Total Critical Care Time: 33 <Stanislav Ramos - Last Filed: 09/29/21 16:56> Disposition <Viral Dubois - Last Filed: 09/29/21 14:50> Time of Disposition: 16:55 - Out of Hospital Transfer - Req. Specs Out of Hospital Transfer - Requested Specifics: Other Emergency Center ([facility]) <Stanislav Ramos - Last Filed: 09/29/21 16:56> Clinical Impression: Aortic dissection Disposition: OTHER INSTITUTION NOT DEFINED Condition: Critical Referrals: Ann-Marie Arroyo MD [Primary Care Provider] - 1-2 days
[2021-09-29 14:19] LABS: Basophils # (A) 0.1 k/uL (0-0.2); Basophils % (A) 1 %; Eosinophils # (A) 0.3 k/uL (0-0.7); Eosinophils % (A) 3 %; HGB 12.9 gm/dL (11.4-16.0); Lymphocytes # (A) 3.5 k/uL (1.0-4.8); Lymphocytes % (A) 36 %; MCH 30.4 pg (25.0-35.0); MCHC 32.3 g/dL (31.0-37.0); MCV 94.1 fL (80.0-100.0); Mean Platelet Volume 7.7; Monocytes # (A) 0.6 k/uL (0-1.0); Monocytes % (A) 6 %; Neutrophils % (A) 53 %; Platelet Count 199 k/uL (150-450); RBC 4.26 m/uL (3.80-5.40); RDW 14.1 % (11.5-15.5); WBC 9.6 k/uL (3.8-10.6)
[2021-09-29 14:30] LABS: Calcium 9.5 mg/dL (8.4-10.2); Potassium 4.1 mmol/L (3.5-5.1); Total Bilirubin 1.1 mg/dL (0.2-1.3); Total Protein 6.4 g/dL (6.3-8.2)
[2021-09-29 14:39] LABS: INR 0.9 (<1.2); Prothrombin Time 10.2 sec (9.0-12.0)
--- NOTE | 2021-09-29 14:54 | XR ---
EXAMINATION TYPE: XR chest 2V DATE OF EXAM: 09/29/2021 COMPARISON: Chest x-ray 11/22/2020 HISTORY: Chest pain TECHNIQUE: Frontal and lateral views of the chest are obtained. FINDINGS: The aorta is tortuous and ectatic, dense. There is no focal air space opacity, pleural effu yasmin, or pneumothorax seen. The cardiac silhouette size is stable, enlarged. There is an overlying loop recorder. Overlying artifacts, leads. Patient is rotated. The osseous structures are intact. IMPRESSION: Difficult to exclude aortic aneurysm. Cardiac size appears borderline increased
[2021-09-29] MEDS ORDERED: hydrALAZINE HCL 20 MG/ML 1 ML VIAL IVP STA (14:57)
[2021-09-29] MEDS ORDERED: ESMOLOL IN SODIUM CHLORIDE PMX 2.5 GM in SALINE 1 250ML.BAG IV ONE (15:41)
[2021-09-29] MEDS ORDERED: ONDANSETRON 4 MG/2 ML VIAL IVP STA ×2 (15:54→15:58)
[2021-09-29] MEDS ORDERED: HYDROmorphone 1 MG/ML 1 ML SYRINGE IVP STA ×2 (15:54→17:18)
--- NOTE | 2021-09-29 16:03 | CT ---
EXAMINATION TYPE: CT angio thor/abd pel aorta CT DLP: 1447.8 mGycm, Automated exposure control for dose reduction was used. DATE OF EXAM: 09/29/2021 3:47 PM COMPARISON: CT and pelvis 04/12/2018. CLINICAL INDICATION:Female, 81 years old with history of Chest and back pain with an elevated d-dimer ; Chest and back pain with elevated d-dimer TECHNIQUE: Dissection protocol: Multiple axial CT images of the chest, abdomen, and pelvis were obtai drake prior and to the administration of IV contrast. 3-D reformats and maximum intensity projection fo rmat were performed on a separate workstation. Contrast used:80 mL of Isovue 370 with IV Contrast, Oral contrast used: None FINDINGS: ARTERIAL VASCULATURE: There is an aortic dissection which is felt to be extending from the and around colby left subclavian artery and extending into the right external iliac artery. This is new from [place] or imaging.. The false lumen does demonstrate some IV contrast most pronounced in the distal thoracic aorta and in the intra-abdominal aorta. The true lumen feeds the celiac, SMA, left renal artery and the inferior mesenteric arteries. The right renal artery is nonopacified with asymmetric absent nephr ogram with nonenhancement of the right kidney. This is best appreciated on series 501 image 144 PULMONARY ARTERIAL VASCULATURE: Normal caliber. No evidence of filling defect to suggest central pulm onary embolus. Evaluation slightly limited by bolus timing. VENOUS SYSTEM: Unremarkable, Lungs/pleura: The lung parenchyma appears unremarkable. Heart: Within normal limits. Mediastinum: No gross evidence of adenopathy. Lower Neck: No significant findings. Abdomen: Liver: Unremarkable. Gallbladder and Bile ducts: Unremarkable. Pancreas: Unremarkable. Spleen: Unremarkable. Adrenal glands: Unremarkable. Kidneys and Ureters: Left renal cysts. No hydronephrosis. Stomach and Bowel: Few scattered clonic diverticula. No evidence of bowel obstruction. Peritoneum: No evidence of pneumoperitoneum, free fluid, or adenopathy. Bladder: Unremarkable. Reproductive: Unremarkable. Abdominal wall/soft tissues: Unremarkable. Musculoskeletal: The osseous structures appear intact. Findings communicated to ordering provider on 09/29/2021 3:[address] Carmelo Garcia. IMPRESSION: 1. Aortic dissection extending from around the subclavian artery into the right external iliac artery . Unclear whether this completely encircles the left subclavian artery or a portion of the origin. 2. 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 No enhancemen t of the right kidney. Normal left renal nephrogram. 3/
[2021-09-29] MEDS ORDERED: niCARdipine 20 MG in SODIUM CHLORIDE 0.9% 192 ML IV SCH (16:30)
[2021-09-29 17:32] VITALS: BP 127/88; PULSE 68; RESP 18
== END 2021-09-29 17:40 | disposition other institution (70) ==
LOC: EC 13:29
DX: I71.00 Dissection of unspecified site of aorta (principal); K21.9 Gastro-esophageal reflux disease without esophagitis; E78.5 Hyperlipidemia, unspecified; M19.90 Unspecified osteoarthritis, unspecified site; I10 Essential (primary) hypertension; F41.9 Anxiety disorder, unspecified; F32.A Depression, unspecified; F17.200 Nicotine dependence, unspecified, uncomplicated; Z88.8 Allergy status to other drugs, medicaments and biological substances; Z79.899 Other long term (current) drug therapy; Z20.822 Contact with and (suspected) exposure to COVID-19
CPT/HCPCS: 36415; 93005; 85379; 80053; 83735; 84484; 85025; 85610; 85730; 87636; 71046; 71275; 74174; 99291; 96374; 96375 ×3; J2405; J1170; Q9967

== ENCOUNTER → 2023-12-10 | Day surgery (SDC) | payer MEDICARE ==
[~2023-12-10] MED LIST changes: -LACTATED RINGERS 1,000 ML IV SCH; +LIDOCAINE 1% INJ 10MG/ML (20 ML MDV) ONE; +PROPOFOL 10 MG/ML 20 ML VIAL IV ONE
[2023-12-10] MEDS: IV FLUID CONTINUATION 1,000 ML IV ONE (08:36)
[2023-12-10 08:46] VITALS: TEMP 97.2
[2023-12-10] MEDS: LACTATED RINGERS 1,000 ML IV SCH (08:55)
--- NOTE | 2023-12-10 09:11 | P.PCN ---
Date of Procedure: 12/10/23 Procedure(s) Performed: BRIEF HISTORY: Patient is a 83-year-old, pleasant, white female scheduled for upper endoscopy as a part evaluation of chronic intermittent episodes of nausea vomiting for the last 5 to 6 years duration. She has these episodes once or twice a week associate with some crampy lower abdominal pain but no heartburn. Has been on omeprazole 40 mg daily for several years with no help. She is in school for an upper endoscopy to evaluate further.. PROCEDURE PERFORMED: Esophagogastroduodenoscopy with biopsy. PREOPERATIVE DIAGNOSIS: Chronic intermittent nausea vomiting of several years duration. IV sedation per anesthesia. PROCEDURE: After informed consent was obtained, the patient was brought into the endoscopy unit. IV sedation was administered by Anesthesia under continuous monitoring. Initially the Olympus GIF-140 video endoscope was inserted into the mouth. Esophagus intubated without any difficulty. It was gradually advanced into the stomach and duodenum and carefully examined. The bulb and the second part of the duodenum appeared normal. Apices were done from the duodenum to evaluate for celiac disease the scope at this time was withdrawn to the stomach, adequately insufflated with air, and upon careful examination, mucosa of the antrum, and mild patchy areas of erythema consistent with gastritis and biopsies were done from this area. Mucosa of the body, cardia and the fundus appeared normal. The scope was then withdrawn into the esophagus. Mild hiatal hernia noted. The GE junction was located at 39 cm from the incisors. The esophagus appeared normal. There were no erosions or ulcerations seen, biopsies were done from the distal esophagus and the patient tolerated the procedure well. IMPRESSION: 1. Mild antral gastritis. 2. Small hiatal hernia. RECOMMENDATIONS: The findings of this examination were discussed with the patient as well as her family. She was advised to follow with the biopsy results. Continue with omeprazole 40 mg daily and follow antireflux measures. Zofran as needed for the nausea. Follow-up in the office in 3 to 4 weeks.
[2023-12-10 09:36] VITALS: BP 124/85; PULSE 69; RESP 18
== END | disposition home or self-care (01) ==
LOC: ORWHC2ENDO 08:11
PROVIDERS: ATTEND Internal Medicine Gastroenterology
CPT/HCPCS: 43239; 88305

== ENCOUNTER → 2024-01-20 | Outpatient (CLI) | payer MEDICARE ==
--- NOTE | 2024-01-20 11:33 | FL ---
EXAMINATION TYPE: FL barium swallow DATE OF EXAM: 01/20/2024 COMPARISON: None CLINICAL INDICATION: Female, 83 years old with history of R13.19 OTHER DYSPHAGIA; [facility], TECHNIQUE: A single contrast esophagram is performed utilizing air and barium. A total of 1 minute and 19 seconds of fluoroscopic time was utilized during procedure and 27 images obtained. Total dose area product (DAP) in uGy*m?, mGy*cm? (or similar) . COMPARISON: None FINDINGS: There are numerous tertiary contractions esophagus. An area of narrowing is seen in the dis jacey esophagus a few centimeters above the GE junction. Underlying mucosal lesion not excluded. No siz able hiatal hernia or gastroesophageal reflux. Upper esophagus demonstrates no evidence of filling de fect or obstruction. IMPRESSION: 1. Tertiary contractions of the esophagus. 2. Recommend EGD\direct visualization for area of localized narrowing at distal esophagus. [facility], , 01/20/2024 11:31 AM
== END | disposition home or self-care (01) ==
LOC: RADFLMAIN 10:05
PROVIDERS: ATTEND Internal Medicine Gastroenterology
DX: K22.4 Dyskinesia of esophagus (principal); R11.0 Nausea
CPT/HCPCS: 74220

== ENCOUNTER → 2024-02-04 | Outpatient (CLI) | payer MEDICARE | END | disposition home or self-care (01) | LOC: RADNMMAIN 06:43 | PROVIDERS: ATTEND Internal Medicine Gastroenterology | DX: Z53.9 Procedure and treatment not carried out, unspecified reason (principal) ==

== ENCOUNTER → 2024-03-05 | Outpatient (CLI) | payer MEDICARE ==
--- NOTE | 2024-03-05 20:32 | NM ---
EXAMINATION TYPE: NM gastric emptying static DATE OF EXAM: 03/05/2024 COMPARISON: NONE CLINICAL INDICATION: Female, 84 years old with history of R11.0 Nausea; Following administration of 1.9 mCi Tc 99m Sulfur Colloid with 4 OUNCES OF EGGS, 1 PIECE OF TOAST WIT H BUTTER & 8 OUNCES OF WATER, projection images of the abdomen were obtained 10 minutes post ingestio n. Patient Emptying Values 1 Hour 28 % (70-10%) 2 Hours 35 % (> 40%) 3 Hours 58 % (> 70%) 4 Hours 69 % (> 90%) Gastroesophagel reflux: None IMPRESSION: Gastric emptying value after the first hour are abnormally low. Scintigraphic findings tapia ggest gastroparesis. Clinically correlate. [facility], , 03/05/2024 8:30 PM
== END | disposition home or self-care (01) ==
LOC: RADNMMAIN 06:58
PROVIDERS: ATTEND Internal Medicine Gastroenterology
DX: R11.0 Nausea (principal)
CPT/HCPCS: 78264; A9541

== ENCOUNTER → 2024-09-10 | Outpatient (CLI) | payer MEDICARE ==
--- NOTE | 2024-09-10 16:01 | XR ---
EXAMINATION TYPE: XR abdomen 1V DATE OF EXAM: 09/10/2024 3:57 PM COMPARISON: Plain film CLINICAL INDICATION: Female, 84 years old with history of R10.84 GENERALIZED ABDOMINAL PAIN; [facility] TECHNIQUE: One radiographic view of the abdomen was obtained. FINDINGS: Moderate to large stool burden in the right colon. The bowel gas pattern is nonspecific wit hout dilated loops of small or large bowel. . Fecal material and gas are demonstrated throughout the colon and rectum. There is no evidence for organomegaly or pneumoperitoneum. Degeneration changes of the spine. Scoliosis changes of the spine DEXA scoliosis apex L3. No acute osseous process. No abno rmal calcifications are present. Loop recorder is present. IMPRESSION: Moderate to large stool burden in the right colon. Nonspecific bowel gas pattern without radiographic evidence for acute process. [facility], , 09/10/2024 3:59 PM
== END | disposition home or self-care (01) ==
LOC: RADXRMAIN 15:33
PROVIDERS: ATTEND Nurse Practitioner Family
DX: R10.84 Generalized abdominal pain (principal); R19.5 Other fecal abnormalities; R14.0 Abdominal distension (gaseous)
CPT/HCPCS: 74018